=== PATIENT | male | born 1940 | race Caucasian/White ===

== ENCOUNTER 2022-01-25 08:24 | Day surgery (SDC) | payer MEDICARE, OTHER ==
[~2022-01-25] VITALS: Ht 176.5 cm; Wt 58.2 kg
[~2022-01-25 08:24] MED LIST: LIDOcaine Viscous 15ml cup ONE; fentaNYL/PF 50MCG/1 ML 2ML syringe ONE
[2022-01-25 08:40] VITALS: BP 116/73
[2022-01-25] MEDS ORDERED: DOCU100C40 PO (08:44)
[2022-01-25] MEDS ORDERED: OXYB5TAB16 PO (08:45)
[2022-01-25] MEDS ORDERED: IBUP-1985 PO (08:46)
[2022-01-25] MEDS ORDERED: HYDR-3686 PO (08:46)
[2022-01-25 10:10] VITALS: BP 119/56
[2022-01-25 10:20] VITALS: BP 100/56
[2022-01-25 10:30] VITALS: BP 101/56
[2022-01-25 10:40] VITALS: BP 98/53
[2022-01-25] MEDS ORDERED: MIDAZolam 1 MG/ML 5ML VIAL ONE (11:14)
== END 2022-01-25 10:55 | disposition home or self-care (01) ==
LOC: GI LAB 08:24
PROVIDERS: ATTEND Internal Medicine Gastroenterology
DX: R13.10 Dysphagia, unspecified (principal); K59.00 Constipation, unspecified; K57.30 Diverticulosis of large intestine without perforation or abscess without bleeding; K21.00 Gastro-esophageal reflux disease with esophagitis, without bleeding; K29.70 Gastritis, unspecified, without bleeding; Z72.89 Other problems related to lifestyle; Z85.828 Personal history of other malignant neoplasm of skin; Z88.8 Allergy status to other drugs, medicaments and biological substances
CPT/HCPCS: 43239; 43450; 45378; 88305; 99153; G0500; J2250; J3010; J7030; Z7512; 99152; A4620